=== PATIENT | male | born 1995 | race Two or more races ===

== ENCOUNTER 2024-12-24 17:39 | Emergency (ER) | payer BC, SELFPAY ==
--- NOTE | 2024-12-24 17:49 | XR_ITS ---
Examination: Right hand fifth digit 2 views TECHNIQUE: AP lateral right hand fifth digit 2 views INDICATIONS: Postreduction fifth digit dislocation today. FINDINGS: Satisfactory alignment phalanges fifth digit No acute fracture No foreign body IMPRESSION: Satisfactory reduction fifth digit
--- NOTE | 2024-12-24 17:49 | EDNOTE_ITS ---
Upper Extremity Injury RME/HPI General Chief Complaint: Hand/Wrist Problems Stated Complaint: Right 5th digit dislocated at football practice Time Seen by Provider: 12/24/24 17:47 Arrival date/time: 12/24/24 17:39 RME / HPI RME / HPI narrative: 29-year-old male patient was brought in by family for evaluation regarding possible dislocation of the PIP joint right pinky finger. Patient was seen at football practice when it happened. Patient denies any other injury and able to bend or extend the finger without any pain or discomfort. Incident happened few minutes prior to ER visit Related Data Allergies Allergy/AdvReac Type Severity Reaction Status Date / Time vancomycin Allergy Severe RASH Verified 12/24/24 17:42 Review of Systems Review of Systems Narrative Review of Systems: Review of system reviewed and within normal limits except mentioned in HPI ED Exam Narrative Physical exam: VITAL SIGNS: Reviewed. GENERAL APPEARANCE: Alert and interactive, follows commands, no acute distress, HEAD AND FACE: Non-traumatic. ENT: PERRL, pink conjunctivitis, eyelid no trauma, Mucous membrane moist. NECK: Supple, nontender, no nuchal rigidity. RECTAL: Deferred. GENITAL: Deferred. NEUROLOGICAL: Gross motor function intact sensory function intact, Appropriate for age. MUSCULOSKELETAL: low back nontender, full range of motion. EXTREMITIES: Right pinky finger deformity, with limitation range of motion. SKIN: Color pink, dry, no rash, no lacerations, no abrasions, no contusions. LYMPHATICS: Deferred. Course Quality Measures none Orders Category Date Time Status XR finger RT min 2V Stat Exams 12/24/24 17:49 Completed Extremity Injury MDM Narrative [facility] Narrative:: 29-year-old male patient was brought in by family for evaluation regarding p ossible dislocation of the PIP joint right pinky finger. Patient was seen at football practice when it happened. Patient denies any other injury and able to bend or extend the finger without any pain or discomfort. Incident happened few minutes prior to ER visit Patient wanted me to reduce the PIP joint dislocation of the right fifth finger without anesthesia, without x-ray also. I reduced it without any difficulty, able to bend and extend the finger without any difficulty. X-ray of the finger showed complete reduction. Patient is able to bend and extend finger without any problem. Patient data External records reviewed:: None Clinical information provided by:: none Social determinants that could affect healthcare access:: none Patient has the following chronic illnesses:: None How is presenting disease/condition affected by chronic disease/condition?: no chronic disease Evaluation data The following diagnostics were reviewed and interpreted by me:: radiology exam(s) Lab and/or radiology exams considered but not ordered:: None Interpretation Summary: X-ray of the finger came back unremarkable. Medications / Prescriptions Medications or Prescriptions considered but not ordered:: None Medication administrations:: None Consultations Consultation(s) initiated? (list below): No Diagnosis Upper Extremity Injury Differential Diagnosis: finger sprain and dislocation of finger Most likely diagnosis given after review of the tests above:: Finger dislocation PIP joint right fifth finger Admission Indicated Admission indicated?: not indicated Admission Request Was there a request for admission?: No Disposition Plan Disposition Plan: Discharge Discharge Attestation Discharge Attestation: The patient and all family members were given an opportunity to ask questions and understood the discharge instructions. Discharge instructions specifically effects, indications for sooner follow up or return to the emergency department, and the expected course of current diagnosis. Patient condition: Stable Discharge Plan Plan Patient Disposition: HOME (Self Care) Discharge Disposition comment: Stable Prescriptions/Referrals Referrals: Tariq Aldrich MD [Primary Care Provider] - In 1 week Problem List Clinical Impression: Dislocation of finger PIP joint Patient/Caregiver Discharge Instructions Discharge Activity: activity as tolerated Education Materials: ED Finger Dislocation Additional Instructions: Thank you for the opportunity for serving you today. You are stable for discharged . You are advised to: Follow-up with your PCP in 1 to 2 days Return to ED for worsening of symptoms Take [id number] Tylenol or Motrin as needed for pain Print Language: [place]i Stand Alone Forms: Sita Award Info., Patient Portal Info Letter NATHAN/DAYAN Supervising Physician JOHNNA Supervising Physician: MD Kem
[2024-12-24 19:00] VITALS: BP 158/102; PULSE 62; RESP 18; TEMP 36.6; O2SAT 98
--- NOTE | 2024-12-24 19:00 | PC.NURSE ---
informed Mary [employer] pt. BP is 158/102, Mary states ok to send pt. home.
[2024-12-24 19:05] VITALS: BP 158/102; PULSE 62; RESP 17; TEMP 36.6; O2SAT 98
== END 2024-12-24 19:05 | disposition home or self-care (01) ==
PROVIDERS: Emergency Provider Emergency Medicine; PCP Internal Medicine
DX: S63.286A Dislocation of proximal interphalangeal joint of right little finger, initial encounter (principal); X58.XXXA Exposure to other specified factors, initial encounter; Y93.61 Activity, american tackle football
CPT/HCPCS: 73140; 99283